=== PATIENT | female | born 1975 | race Caucasian/White ===

== ENCOUNTER → 2016-11-18 | Outpatient (CLI) | payer BC | LOC: RAD 06:37 | PROVIDERS: ATTEND Specialist | DX: K82.9 Disease of gallbladder, unspecified (principal) | CPT/HCPCS: 76705 ==

== ENCOUNTER 2016-11-19 18:03 | Emergency (ER) | payer BC ==
[2016-11-19 19:32] VITALS: BP 120/80
== END 2016-11-19 21:57 | disposition left against medical advice (07) ==
LOC: ER 18:03
DX: Z53.9 Procedure and treatment not carried out, unspecified reason (principal); R10.9 Unspecified abdominal pain

== ENCOUNTER → 2016-12-01 | Outpatient (CLI) | payer BC, MEDICAID | LOC: RAD 16:33 | PROVIDERS: ATTEND Specialist | DX: E27.9 Disorder of adrenal gland, unspecified (principal) | CPT/HCPCS: 74181 ==

== ENCOUNTER 2016-12-22 16:52 | Emergency (ER) | payer BC ==
[2016-12-22 17:04] VITALS: BP 147/93
== END 2016-12-22 21:05 | disposition left against medical advice (07) ==
LOC: ER 16:52
DX: Z53.21 Procedure and treatment not carried out due to patient leaving prior to being seen by health care provider (principal)

== ENCOUNTER → 2018-02-22 | Outpatient (CLI) | payer BC ==
--- NOTE | 2018-02-22 15:39 | RADIOLOGY REPORT (SQ) ---
EXAM DESCRIPTION: CT ABDOMEN NO ORAL OR IV COMPLETED DATE/TIME: 02/22/2018 3:25 pm REASON FOR STUDY: DISORDER OF ADRENAL GLAND, UNSPECIFIED E27.9 DISORDER OF ADRENAL GLAND, UNSPECIFI ED COMPARISON: None. TECHNIQUE: CT scan of the abdomen performed without intravenous contrast and without oral contrast. Images reviewed with lung, soft tissue, and bone windows. Reconstructed coronal and sagittal MPR im ages reviewed. All images stored on PACS. All CT scanners at this facility use dose modulation, iterative reconstruction, and/or weight based d osing when appropriate to reduce radiation dose to as low as reasonably achievable (ALARA). [facility]: Dose Right [facility]: CareDose [facility]: Dose Right [facility]: Teradose 4D [facility]: [employer] RADIATION DOSE: CT Rad equipment meets quality standard of care and radiation dose reduction techniq ues were employed. CTDIvol: 10.2 mGy. DLP: 366 mGy-cm.mGy. LIMITATIONS: None. FINDINGS: LOWER CHEST: No significant findings. No nodules or infiltrates. NONCONTRASTED LIVER, SPLEEN, ADRENALS: 2 cm right adrenal nodule which has been stable since 2013. PANCREAS: No masses. No peripancreatic inflammatory changes. GALLBLADDER: No identified stones by CT criteria. No inflammatory changes to suggest cholecystitis. RIGHT KIDNEY AND URETER: No suspicious masses. Assessment limited by lack of IV contrast. There are 2 renal calculi measuring about 2 mm each. No hydronephrosis or hydroureter. LEFT KIDNEY AND URETER: No suspicious masses. Assessment limited by lack of IV contrast. 2 mm calcu fei upper pole. No hydronephrosis or hydroureter. AORTA AND RETROPERITONEUM: No aneurysm. No retroperitoneal masses or adenopathy. BOWEL AND PERITONEAL CAVITY: No obvious masses or inflammatory changes. No free fluid. APPENDIX: Not visualized. ABDOMINAL WALL: No abdominal wall hernias. BONES: No significant findings. OTHER: No other significant finding. IMPRESSION: Nonobstructing bilateral renal calculi without significant change. Stable 2 cm nodule right adrenal gland. TECHNICAL DOCUMENTATION: JOB ID: [id number] Quality ID # [id number]: Final reports with documentation of one or more dose reduction techniques (e.g., Au tomated exposure control, adjustment of the mA and/or kV according to patient size, use of iterative reconstruction technique) 2010 [employer]- All Rights Reserved Reading location - IP/workstation name: [email or web address]
== END ==
LOC: RAD 15:00
PROVIDERS: ATTEND Physician Assistant
DX: E27.9 Disorder of adrenal gland, unspecified (principal); N20.0 Calculus of kidney; I10 Essential (primary) hypertension
CPT/HCPCS: 74150